=== PATIENT | male | born 1945 | race Caucasian/White ===

== ENCOUNTER 2017-07-03 21:10 | Observation (INO) | payer OTHER, BC ==
[~2017-07-03] VITALS: Ht 177.8 cm; Wt 82.2 kg
[2017-07-03 22:54] LABS: TROP-I INTERPRETATION NEGATIVE; TROPONIN-I 0.02 ng/mL (0.0-0.30)
[2017-07-04] MEDS ORDERED: LEVOFLOXACIN500 MG PO (01:57)
[2017-07-04] MEDS ORDERED: AMITRIPTYLINE H50 MG PO (01:57)
[2017-07-04] MEDS ORDERED: CITALOPRAM HBR20 MG PO (01:57)
[2017-07-04] MEDS ORDERED: ASPIRIN81 M2 PO (01:58)
[2017-07-04] MEDS ORDERED: LANSOPRAZOLE30 MG PO (01:58)
[2017-07-04] MEDS ORDERED: HYDROCHLOROTH12.5 M3 PO ×2 (01:58→15:40)
[2017-07-04] MEDS ORDERED: XARELTO20 MG PO (01:59)
[2017-07-04] MEDS ORDERED: APRESOLINE50 MG PO (02:00)
[2017-07-04] MEDS ORDERED: METOPROLOL SUCC25 MG PO (02:00)
[2017-07-04] MEDS ORDERED: OXYCODONE-APAP1 EACH PO (02:00)
[2017-07-04] MEDS ORDERED: VITAMIN B-12500 MC5 SL (02:01)
[2017-07-04] MEDS ORDERED: CO Q-10200 MG PO (02:02)
[2017-07-04] MEDS ORDERED: DAILY VITE1 EAC1 PO (02:02)
[2017-07-04 04:16] VITALS: BP 204/95
[2017-07-04 05:41] LABS: TROP-I INTERPRETATION NEGATIVE; TROPONIN-I 0.02 ng/mL (0.0-0.30)
[2017-07-04 08:36] VITALS: BP 223/99
[2017-07-04 09:28] LABS: HEMATOCRIT 35.5 % (38.0-50.0); HEMOGLOBIN 11.5 G/DL (12.5-16.6); MCH 26.6 PG (29.0-34.0); MCHC 32.4 G/DL (30.0-36.0); MCV 82.2 FL (86-99); PLATELET COUNT 207 K/uL (156-360); RBC DIS.WIDTH-CV 15.9 % (11.8-14.6); RBC DIS.WIDTH-SD 47.8 % (39-53); RED BLOOD COUNT 4.32 M/uL (4.00-5.50); WHITE BLOOD COUNT 10.4 K/uL (4.1-10.2)
[2017-07-04 09:31] VITALS: BP 176/79
[2017-07-04 09:52] LABS: CHLORIDE 99 MEQ/L (99-109); GFR ESTIMATE (CALCULATED) 35 mL/min/ (58.99-99999); GLUCOSE 85 mg/dL (70-99); POTASSIUM 3.3 MEQ/L (3.7-5.4); SODIUM 134 MEQ/L (136-147); UREA NITROGEN (BUN) 24 mg/dL (9-23)
[2017-07-04 11:20] LABS: TROP-I INTERPRETATION NEGATIVE; TROPONIN-I 0.01 ng/mL (0.0-0.30)
[2017-07-04 11:47] VITALS: BP 167/78
[2017-07-04 13:13] LABS: TROP-I INTERPRETATION NEGATIVE; TROPONIN-I 0.02 ng/mL (0.0-0.30)
[2017-07-04 14:11] VITALS: BP 162/74
== END 2017-07-04 17:48 | disposition home or self-care (01) ==
LOC: EME → EDBD 21:10 → EME 21:10 → EDOF 07-04 01:41 → ENRESERV 07-04 01:42 → 5WEST 07-04 03:50
PROVIDERS: Emergency Medicine; Hospitalist; Internal Medicine; Nurse Practitioner Family
DX: R07.9 Chest pain, unspecified (principal); I16.0 Hypertensive urgency; I48.0 Paroxysmal atrial fibrillation; J44.9 Chronic obstructive pulmonary disease, unspecified; E87.6 Hypokalemia; I13.0 Hypertensive heart and chronic kidney disease with heart failure and stage 1 through stage 4 chronic kidney disease, or unspecified chronic kidney disease; I50.9 Heart failure, unspecified; N18.9 Chronic kidney disease, unspecified; I25.10 Atherosclerotic heart disease of native coronary artery without angina pectoris; M79.89 Other specified soft tissue disorders; E78.5 Hyperlipidemia, unspecified; I73.9 Peripheral vascular disease, unspecified; E78.00 Pure hypercholesterolemia, unspecified; K21.9 Gastro-esophageal reflux disease without esophagitis; Z82.49 Family history of ischemic heart disease and other diseases of the circulatory system; Z79.01 Long term (current) use of anticoagulants; Z79.82 Long term (current) use of aspirin; Z87.891 Personal history of nicotine dependence
CPT/HCPCS: 80048; 84484; 85027; 93005; 99281; 99285; G0378; J0360; J2405

== ENCOUNTER 2017-08-17 14:45 | Emergency (ER) | payer OTHER, BC ==
[~2017-08-17] VITALS: Ht 177.8 cm; Wt 85.7 kg
[~2017-08-17 14:45] MED LIST: AMITRIPTYLINE H50 MG PO; APRESOLINE50 MG PO; ASPIRIN81 M2 PO; CITALOPRAM HBR20 MG PO; CO Q-10200 MG PO; DAILY VITE1 EAC1 PO; HYDROCHLOROTH12.5 M3 PO; LANSOPRAZOLE30 MG PO; LEVOFLOXACIN500 MG PO; METOPROLOL SUCC25 MG PO; OXYCODONE-APAP1 EACH PO; VITAMIN B-12500 MC5 SL; XARELTO20 MG PO
[2017-08-17] MEDS ORDERED: AMOX TR-K CLV1 EAC4 PO (15:18)
[2017-08-17] MEDS ORDERED: ZALEPLON10 MG PO (15:19)
[2017-08-17 16:22] LABS: HEMATOCRIT 34.7 % (38.0-50.0); HEMOGLOBIN 11.3 G/DL (12.5-16.6); MCH 25.7 PG (29.0-34.0); MCHC 32.6 G/DL (30.0-36.0); MCV 78.9 FL (86-99); PLATELET COUNT 302 K/uL (156-360); RBC DIS.WIDTH-CV 16.8 % (11.8-14.6)
[2017-08-17 16:33] LABS: ALBUMIN 3.8 g/dL (3.2-4.8); CHLORIDE 98 mEq/L (99-109); POTASSIUM 3.5 mEq/L (3.7-5.4); SODIUM 136 mEq/L (136-147)
[2017-08-17 16:35] LABS: GLUCOSE 107 mg/dL (70-99)
[2017-08-17 16:36] LABS: TOTAL PROTEIN 6.7 g/dL (6.4-8.3)
[2017-08-17 16:37] LABS: TOTAL BILIRUBIN 0.7 mg/dL (0.0-1.0)
[2017-08-17 16:39] LABS: ALKALINE PHOSPHATASE 92 IU/L (3-129); GFR ESTIMATE (CALCULATED) 35 mL/min/ (58.99-99999)
[2017-08-17 16:40] LABS: UREA NITROGEN (BUN) 29 mg/dL (9-23)
[2017-08-17 16:41] LABS: AST (GOT) 19 IU/L (2-34)
[2017-08-17 16:42] LABS: ALT (GPT) 12 IU/L (3-49)
[2017-08-17 18:00] VITALS: BP 198/98
== END 2017-08-17 18:00 | disposition home or self-care (01) ==
LOC: EME 14:45
PROVIDERS: Emergency Medicine
DX: F41.9 Anxiety disorder, unspecified (principal); S82.892A Other fracture of left lower leg, initial encounter for closed fracture; K21.9 Gastro-esophageal reflux disease without esophagitis; N18.9 Chronic kidney disease, unspecified; I12.9 Hypertensive chronic kidney disease with stage 1 through stage 4 chronic kidney disease, or unspecified chronic kidney disease; J44.9 Chronic obstructive pulmonary disease, unspecified; F32.9 Major depressive disorder, single episode, unspecified; I25.10 Atherosclerotic heart disease of native coronary artery without angina pectoris; Z87.891 Personal history of nicotine dependence; Z79.82 Long term (current) use of aspirin; Z79.891 Long term (current) use of opiate analgesic
CPT/HCPCS: 80053; 81003; 85027; 90832; 99281; 99285